=== PATIENT | female | born 1980 | race Caucasian/White ===

== ENCOUNTER 2018-01-10 09:49 | Day surgery (SDC) | payer OTHER ==
[~2018-01-10 09:49] MED LIST: cefOXitin SODIUM 2 GM in STERILE WATER INJ 21 ML IV ONE
[2018-01-10] MEDS ORDERED: LR 1,000 ML IV ONE (10:05)
[2018-01-10] MEDS ORDERED: LIDOCAINE 1% 2 ML INJ ID PRN (10:05)
[2018-01-10] MEDS ORDERED: BUPIVACAINE/EPI 0.5% 30 ML SDV ONE (10:29)
[2018-01-10 10:34] VITALS: PULSE 65
--- NOTE | 2018-01-10 11:19 | PDHPUP ---
History & Physical Update H&P update statement: This history and physical update is based on an assessment of the patient which was completed after admission or registration (within 24 hours), but prior to the surgery/procedure. H&P update: H&P reviewed & patient examined, no change in patient's condition since H&P completed
[2018-01-10] MEDS ORDERED: MIDAZOLAM 2 MG/2 ML VIAL IVP ONE (11:38)
--- NOTE | 2018-01-10 11:38 | PDANEPAE ---
ANE History of Present Illness Hemorrhoids ANE Past Medical History - Cardiovascular History Hx Hypertension: No Hx Arrhythmias: No Hx Chest Pain: No Hx Coronary Artery / Peripheral Vascular Disease: No Hx CHF / Valvular Disease: No Hx Palpitations: No - Pulmonary History Hx COPD: No Hx Asthma/Reactive Airway Disease: No Hx Recent Upper Respiratory Infection: No Hx Oxygen in Use at Home: No Hx Sleep Apnea: No Sleep Apnea Screening Result - Last Documented: Negative - Neurologic History Hx Cerebrovascular Accident: No Hx Seizures: No Hx Dementia: No - Endocrine History Hx Diabetes: No - Renal History Hx Renal Disorders: No - Liver History Hx Hepatic Disorders: No - Neurological & Psychiatric Hx Hx Neurological and Psychiatric Disorders: No - Cancer History Hx Cancer: No - Congenital Disorder History Hx Congenital Disorders: No - GI History Hx Gastrointestinal Disorders: Yes Gastrointestinal History Comment: hemorrhoids -internal and external (condition began~ since 2001 w/childbirth), fissure - Other Health History Other Health History: seasonal allergies-Zyrtec "allergic to myself" began in . - Chronic Pain History Chronic Pain: Yes (rectum) - Surgical History Prior Surgeries: tonsillectomy/sinus sx age 12. laparoscopy (endometriosis) age 14. T.L. ANE Review of Systems Review of Systems: - Exercise capacity METS (RN): 4 METS ANE Patient History - Allergies Allergies/Adverse Reactions: Sulfa (Sulfonamide Antibiotics) Allergy (Verified 01/07/18 11:46) Hives - Home Medications Home Medications: Fish Oil 1000 mg (*) 01/07/18 [Last Taken 01/03/18] Ibuprofen 01/07/18 [Last Taken 01/08/18] Multivitamin (*) 01/07/18 [Last Taken 01/03/18] ZYRTEC 01/07/18 [Last Taken 01/09/18 08:00] - NPO status NPO Since - Liquids (Date): 01/10/18 NPO Since - Liquids (Time): 07:00 NPO Since - Solids (Date): 01/09/18 NPO Since - Solids (Time): 18:00 - Anes Hx Anes Hx: no prior problems - Smoking Hx Smoking Status: Light smoker ANE Labs/Vital Signs - Vital Signs Blood Pressure: 125/63 Heart Rate: 65 Respiratory Rate: 16 O2 Sat (%): 96 Height: 162.56 cm Weight: 77.111 kg ANE Physical Exam - Airway Neck exam: FROM Mallampati Score: Class 1 Mouth exam: normal dental/mouth exam - Pulmonary Pulmonary: no respiratory distress - Cardiovascular Cardiovascular: regular rate and rhythym - ASA Status ASA Status: I ANE Anesthesia Plan Anesthesia Plan: GA w LMA
[2018-01-10] MEDS ORDERED: fentaNYL 100 MCG/2 ML INJ ONE (11:56)
[2018-01-10] MEDS ORDERED: PROPOFOL 200 MG/20 ML VIAL ONE (11:56)
[2018-01-10] MEDS ORDERED: ONDANSETRON 4 MG/2 ML VIAL ONE (11:58)
[2018-01-10] MEDS ORDERED: LIDOCAINE 2% 5 ML SDV ONE (11:58)
[2018-01-10] MEDS ORDERED: DEXAMETHASONE 4 MG/ML VIAL ONE (11:58)
[2018-01-10] MEDS ORDERED: fentaNYL 100 MCG/2 ML INJ IVP PRN (12:32)
[2018-01-10] MEDS ORDERED: ONDANSETRON 4 MG/2 ML VIAL IVP PRN (12:32)
[2018-01-10] MEDS ORDERED: NALOXONE HCL 0.4 MG/ML INJ IVP PRN (12:32)
--- NOTE | 2018-01-10 13:03 | POSTOPPROG ---
Post Op Note Date of Operation: 01/10/18 Surgeon: Natalie Sorenson Anesthesiologist: jocelin Anesthesia: GET(General Endotracheal) Pre-op Diagnosis: hemorrhoids circumferential Post-op Diagnosis: same Indication: 37 yo with circumferential non thrombosed hemorrhoids Procedure: hemorrhoidectomy X 2 piles Findings: circumferential hemorrhoids, epifix [id number] exp 09/20/2022 Inf/Abcess present in the surg proc area at time of surgery?: No EBL: Minimal Specimen(s): hemorrhoids
--- NOTE | 2018-01-10 13:16 | POSTANESTH ---
Post Anesthetic Evaluation Cardiovascular Status: Normal, Stable Respiratory Status: Normal, Stable Level of Consciousness/Mental Status: Can Participate in Eval Pain Control: Adequate, Prn Tx Ordered Nausea/Vomiting Control: Adequate, Prn Tx Ordered Complications Possibly Related to Anesthesia: None Noted
[2018-01-10 14:19] VITALS: RESP 16
[2018-01-10 14:30] VITALS: TEMP 98.1
[2018-01-10 14:31] VITALS: BP 114/75; O2SAT 97
--- NOTE | 2018-01-12 09:08 | GOP ---
[f rep st] OPERATIVE REPORT DATE OF OPERATION: 01/10/2018 SURGEON: Natalie Sorenson MD ANESTHESIA: Bright Ordoñez MD. PREOPERATIVE DIAGNOSIS: Circumferential external hemorrhoids. POSTOPERATIVE DIAGNOSIS: Circumferential external hemorrhoids. PROCEDURE PERFORMED: Exam under anesthesia and hemorrhoidectomy x2 piles. FINDINGS: No internal hemorrhoids or areas of abnormalities. Circumferential hemorrhoids on the ext erior. EpiFix [id number], expiration September 20, 2022. SPECIMENS: Hemorrhoidal tissue. ESTIMATED BLOOD LOSS: Minimal. INDICATIONS: The patient is a 37-year-old with circumferential long thrombosed hemorrhoid that she h as had for many years. They are waxing and waning in size and interfering with hygiene. DESCRIPTION OF PROCEDURE: Patient was brought into the operating room, placed supine on the table. General anesthesia was administered. She was placed in lithotomy position. Her bottom was prepped w ith Betadine and draped in the usual sterile fashion. I infiltrated all sites with 0.5% Marcaine mikey or to making incisions. I performed a digital rectal exam, followed by an exam under anesthesia. No abnormalities in the anal canal were noted. I grasped the hemorrhoidal column in the left lateral p ile. This one was a bit larger. I excised it with electrocautery. Hemostasis was achieved. I plac ed EpiFix at the base of the wound and I closed the wound with 3-0 Vicryl. In a similar fashion, I e xcised the hemorrhoid on the right lateral pile and placed the remaining EpiFix at the base of the wo und and sutured this closed with 3-0 Vicryl. There was no stenosis. Hemostasis was achieved. She t olerated the procedure well. She was taken out of the lithotomy position, awakened in the operating room. ABD mesh pants were applied. She was transferred to PACU in stable condition. ANESTHESIA: General. /[id number]/MODL
== END 2018-01-10 14:36 | disposition home or self-care (01) ==
LOC: FSGY 09:49
PROVIDERS: ATTEND Surgery
PROC: 06BY0ZC Excision of Hemorrhoidal Plexus, Open Approach (ICD-10-PCS; principal; 2018-01-10 11:30)
DX: K64.8 Other hemorrhoids (principal); Z88.2 Allergy status to sulfonamides
CPT/HCPCS: J0694; J1100; J2250; J2405; J2704; J3010; Q4131